=== PATIENT | male | born 1955 | race Caucasian/White ===

== ENCOUNTER 2018-08-29 08:20 | Outpatient (CLI) | payer OTHER ==
--- NOTE | 2018-08-29 08:37 | RAD ---
RADIOGRAPH CHEST 2 VIEWS: Date: 08/29/18 Time: 0824 HOURS HISTORY: 63-year-old male follow-up pneumonia. Follow-up abnormal chest radiograph. COMPARISON: 07/22/18. FINDINGS: On the frontal view, there continues to be increased density at the retrocardiac portion of the left lower lobe, with associated silhouetting of the medial aspect of the left hemidiaphragm. However, no basilar infiltrate is visualized on the lateral view of today or of the prior study. No p leural effusion. The rest of the lungs are clear. No cardiomegaly or pneumothorax. No pulmonary edema . No interval change overall. IMPRESSION: 1. No definitive evident of pneumonia. 2. Left lower lobe findings on the frontal view are unchanged, but not confirmed on the lateral view . These may represent chronic changes, especially if the patient is currently asymptomatic. If the pa tient is currently symptomatic, consider follow-up chest radiograph or CT in 1 week. LILIAN [] POS: [place]
== END 2018-08-29 08:21 | disposition home or self-care (01) ==
LOC: SCSRAD 08:20
PROVIDERS: ATTEND Family Medicine
DX: J18.1 Lobar pneumonia, unspecified organism (principal)
CPT/HCPCS: 71046

== ENCOUNTER 2021-03-13 15:25 | Outpatient (CLI) | payer MEDICARE, OTHER | END 2021-03-13 15:26 | disposition home or self-care (01) | LOC: SCSRAD 15:25 | PROVIDERS: ATTEND Family Medicine | DX: M54.50 Low back pain, unspecified (principal); M47.816 Spondylosis without myelopathy or radiculopathy, lumbar region; M47.814 Spondylosis without myelopathy or radiculopathy, thoracic region | CPT/HCPCS: 72072; 72100 ==